=== PATIENT | male | born 1950 | race Caucasian/White ===

== ENCOUNTER 2019-01-16 21:25 | Inpatient (IN) ==
[2019-01-16 23:06] LABS: BASO# 0.03 X1000 (0.0-0.2); BASO% 0.6 % (0.0-0.8); HEMATOCRIT 37.3 % (42.0-52.0); HEMOGLOBIN 12.9 g/dL (14.0-18.0); IMM GRAN# 0.03 X1000 (0.0-0.04); IMM GRAN% 0.6 % (0.0-0.5); LYMPH# 0.83 X1000 (1.2-3.4); LYMPH% 15.5 % (20.5-51.1); MCHC 34.6 g/dL (33-37); MCV 89.7 FL (81-99); MONO# 0.69 X1000 (0.11-0.59); MONO% 12.9 % (1.7-9.3); NEUT# 3.77 X1000 (1.4-6.5); NEUT% 70.4 % (42.2-75.2); PLT 197 X1000 (130-400); RBC 4.16 XMIL (4.7-6.1); RDW 12.5 % (11.5-14.5); WBC 5.35 X1000 (4.8-10.8)
[2019-01-16] MEDS ORDERED: MOTRIN PO ONE (23:10)
[2019-01-16 23:30] LABS: INR 0.87; PROTIME 12.3 Seconds (11.0-16.0); PTT 25.8 Seconds (22.3-41.8)
[2019-01-16 23:31] LABS: ALBUMIN 4.4 g/dL (3.5-5.0); CALCIUM 8.8 mg/dL (8.8-10.2); CREATININE 1.8 mg/dL (0.7-1.2); POTASSIUM 4.5 mmol/L (3.5-5.1); TOTAL BILIRUBIN 0.2 mg/dL (0.20-1.00); TOTAL PROTEIN 7.6 g/dL (6.3-8.3)
[2019-01-16 23:33] LABS: BILIRUBIN URINE NEGATIVE (NEGATIVE); BLOOD URINE 1+ (NEGATIVE); CLARITY CLEAR (CLEAR); COLOR YELLOW; KETONE URINE NEGATIVE (NEGATIVE); LEUKOCYTES URINE NEGATIVE (NEGATIVE); NITRITE URINE NEGATIVE (NEGATIVE); PROTEIN URINE 1+(30 mg/dL) mg/dL (NEGATIVE); URINE SOURCE CLEAN CATCH; UROBILINOGEN URINE NORMAL
[2019-01-16 23:34] LABS: URINE BACTERIA NEGATIVE /HFP; URINE EPITHELIAL CELLS <10 /HPF (<10); URINE WBC <10 /HPF (<10)
[2019-01-17 00:46] LABS: INFLUENZA A NEGATIVE (NEGATIVE); INFLUENZA B NEGATIVE (NEGATIVE)
[2019-01-17] MEDS ORDERED: NS 1,000 ML IV ONE (01:07)
[2019-01-17] MEDS ORDERED: ROCEPHIN 1 GM in NS 50 ML IV ONE (01:13)
--- NOTE | 2019-01-17 02:09 | PROVIDER DOCUMENTATION ---
This chart was entered by Nicolasa Franks Scribe, acting as scribe for Bi Eden MD. HPI-General Adult - General Chief Complaint: Stroke-Like Symptoms Stated Complaint: BP PROBLEMS Time Seen by Provider: 01/16/19 22:00 Source: patient, family Allergies/Adverse Reactions: Patient Allergies Allergy/AdvReac Type Severity Reaction Status Date / Time celecoxib [From Celebrex] Allergy SWELLING Verified 02/11/18 16:47 Sulfa (Sulfonamide Allergy SWELLING Verified 02/11/18 16:47 Antibiotics) - History of Present Illness -Gen Adult Nature of Presenting Problems: 69 y/o male presents to ED with trouble walking, weakness, lethargy, diarrhea, HTN, and hyperglycemia onset this afternoon. Pt reports hx CVA. Pt is alert and oriented. Location of Pain/Injury: reports: generalized Pain Radiation: reports: no radiation Quality of Pain: reports: none Severity: reports: mild Onset/Duration: reports: this afternoon Timing: reports: still present Context/Activities at Onset: reports: none Modifying Factors: improves with: nothing Associated Symptoms: reports: diarrhea, weakness, trouble walking, other (HTN; hyperglycemia; lethargic) Similar Symptoms Previously?: No Recently seen or treated by another doctor?: No Review of Systems - Adult - REVIEW OF SYSTEMS - ADULT Constitutional: reports: other (HTN; lethargic). denies: chills, fever Eyes: reports: no symptoms reported Ears, Nose, Mouth & Throat: reports: no symptoms reported Cardiovascular: reports: other (HTN). denies: chest pain, palpitations Respiratory: denies: cough, shortness of breath Gastrointestinal: reports: diarrhea. denies: abdominal pain, nausea, vomiting Genitourinary: reports: no symptoms reported Musculoskeletal: denies: back pain, joint pain Integumentary: reports: no symptoms reported Neurological: reports: other (weakness; trouble walking). denies: dizziness/vertigo, seizure Psychiatric: reports: no symptoms reported Endocrine: reports: other (hyperglycemia). denies: goiter Hematologic/Lymphatic: reports: no symptoms reported Allergic/Immunologic: reports: no symptoms reported All Other Systems: Reviewed and Negative Past History - Adult - PAST MEDICAL HISTORY-ADULT Review of Records: reports: Old Records Reviewed, Nursing Assessment Review, Medications Reviewed Major Childhood Illnesses: reports: denies history Cardiovascular: reports: denies history Respiratory: reports: denies history Gastrointestinal: reports: denies history Genitourinary: reports: denies history Musculoskeletal: reports: denies history Neurological: reports: CVA Endocrine/Immune: reports: Diabetes Other Conditions: reports: denies history, cataract/glaucoma - PRIOR SURGERIES/PROCEDURES Surgical/Procedure History: reports: reviewed, not pertinent, other (cataract removal; moles; arteriogram) - IMMUNIZATION STATUS Childhood Immunizations: See Nurse Assessment Flu Vaccine: See Nurse Assessment - FAMILY HISTORY Family History: reviewed, not pertinent - SOCIAL HISTORY Smoking: non-smoker Substance Use: none/never Alcohol Use Frequency: never Living Situation: family Physical Exam-General - PHYSICAL EXAM-ADULT Initial Vital Signs Reviewed: Yes - CONSTITUTIONAL General Appearance: appears well, alert, no apparent distress - EYES Eyes: PERRL/EOMI, pink conjunctivae - HEAD, EARS, NOSE, MOUTH & THROAT HENMT: normocephalic/atraumatic, moist mucous membranes, normal ENT inspection - NECK Neck: non-tender, full range of motion - RESPIRATORY Respiratory: chest non-tender, lungs clear, normal breath sounds - CARDIOVASCULAR Cardiovascular: tachycardia - GASTROINTESTINAL (ABDOMEN) Abdominal Exam: normal bowel sounds, non tender, soft - MUSCULOSKELETAL Back Exam: normal inspection, no CVA tenderness Extremity: normal range of motion, non-tender, normal gait - SKIN Integumentary: normal color, warm/dry - NEUROLOGIC Neurologic: grossly normal - PSYCHIATRIC Psych/Mental Status: normal mood/affect, normal thought content, normal thought process Progress - PLAN OF CARE/RESULTS Progress/Plan/Lab Results: Vital Signs - 8 hr 01/16/19 21:31 01/16/19 22:27 Temperature 101.1 F H 101.8 F H Pulse Rate 125 H Respiratory Rate 20 Blood Pressure 180/89 O2 Sat by Pulse Oximetry 95 Laboratory Results - last 24 hr 01/16/19 22:27 POC Glucose 249 H Orders Category Date Time Status Cardiac Monitoring DIRECTED Care 01/16/19 22:46 Active IV Insertion ORDERED Care 01/16/19 22:46 Active Notify MD of + Sepsis Screen NOW Care 01/16/19 22:30 Active CHEST-1 VIEW [RAD] Stat Exams 01/16/19 22:46 Ordered BLOOD CULTURE [BLDCUL] Stat Lab 01/16/19 22:46 Uncollected CBC WITH DIFF [HEME] Stat Lab 01/16/19 22:46 Uncollected CK PROFILE [SP CHEM] Stat Lab 01/16/19 22:46 Uncollected COMPREHENSIVE METABOLIC PANEL [CHEM] Stat Lab 01/16/19 22:46 Uncollected LACTATE, PLASMA [CHEM] Q3 Lab 01/16/19 23:00 Uncollected LACTATE, PLASMA [CHEM] Q3 Lab 01/17/19 02:00 Uncollected LACTATE, PLASMA [CHEM] Q3 Lab 01/17/19 05:00 Uncollected PROTIME WITH INR [COAG] Stat Lab 01/16/19 22:46 Uncollected PSA DIAGNOSTIC Stat Lab 01/16/19 22:53 Ordered PTT [COAG] Stat Lab 01/16/19 22:46 Uncollected TROPONIN T Stat Lab 01/16/19 22:[address] W/POSS RFLX CULT [URINALYSIS] Stat Lab 01/16/19 22:46 Uncollected Oxygen Device Stat Oth 01/16/19 22:46 Active Laboratory Tests 01/16/19 01/16/19 01/16/19 22:27 22:55 22:55 WBC 5.35 RBC 4.16 L Hgb 12.9 L Hct 37.3 L MCV 89.7 MCH 31.0 MCHC 34.6 RDW Std Deviation 12.5 Plt Count 197 MPV 11.0 H Immature Gran % (Auto) 0.6 H Neut % (Auto) 70.4 Lymph % (Auto) 15.5 L [place] % (Auto) 12.9 H Eos % (Auto) 0.0 Baso % (Auto) 0.6 Immature Gran # (Auto) 0.03 Neut # (Auto) 3.77 Lymph # (Auto) 0.83 L [place] # (Auto) 0.69 H Eos # (Auto) 0.00 Baso # (Auto) 0.03 PT INR PTT (Actin FS) Sodium 132 L Potassium 4.5 Chloride 95 L Carbon Dioxide 22 L Anion Gap 15 BUN 22 Creatinine 1.8 H Estimated GFR/1.73 m2 37 BUN/Creatinine Ratio 12 Glucose 221 H POC Glucose 249 H Calculated Osmolality 275 Calcium 8.8 Total Bilirubin 0.20 AST 24 ALT 17 Alkaline Phosphatase 69 Creatine Kinase 119 Troponin T Total Protein 7.6 Albumin 4.4 Globulin 3.0 Albumin/Globulin Ratio 1.0 Plasma Lactate PSA Diagnostic Urine Source Urine Color Urine Clarity Urine pH Ur Specific Avis Urine Protein Urine Ketones Urine Blood Urine Nitrite Urine Bilirubin Urine Urobilinogen Urine Microscopic RBC Urine WBC Urine Microscopic WBC Ur Epithelial Cells Urine Bacteria Urine Glucose 01/16/19 01/16/19 01/16/19 22:55 22:55 22:55 WBC RBC Hgb Hct MCV MCH MCHC RDW Std Deviation Plt Count MPV Immature Gran % (Auto) Neut % (Auto) Lymph % (Auto) [place] % (Auto) Eos % (Auto) Baso % (Auto) Immature Gran # (Auto) Neut # (Auto) Lymph # (Auto) [place] # (Auto) Eos # (Auto) Baso # (Auto) PT 12.3 INR 0.87 PTT (Actin FS) 25.8 Sodium Potassium Chloride Carbon Dioxide Anion Gap BUN Creatinine Estimated GFR/1.73 m2 BUN/Creatinine Ratio Glucose POC Glucose Calculated Osmolality Calcium Total Bilirubin AST ALT Alkaline Phosphatase Creatine Kinase Troponin T < 0.010 Total Protein Albumin Globulin Albumin/Globulin Ratio Plasma Lactate 1.6 PSA Diagnostic Urine Source Urine Color Urine Clarity Urine pH Ur Specific Avis Urine Protein Urine Ketones Urine Blood Urine Nitrite Urine Bilirubin Urine Urobilinogen Urine Microscopic RBC Urine WBC Urine Microscopic WBC Ur Epithelial Cells Urine Bacteria Urine Glucose 01/16/19 01/16/19 22:55 23:05 WBC RBC Hgb Hct MCV MCH MCHC RDW Std Deviation Plt Count MPV Immature Gran % (Auto) Neut % (Auto) Lymph % (Auto) [place] % (Auto) Eos % (Auto) Baso % (Auto) Immature Gran # (Auto) Neut # (Auto) Lymph # (Auto) [place] # (Auto) Eos # (Auto) Baso # (Auto) PT INR PTT (Actin FS) Sodium Potassium Chloride Carbon Dioxide Anion Gap BUN Creatinine Estimated GFR/1.73 m2 BUN/Creatinine Ratio Glucose POC Glucose Calculated Osmolality Calcium Total Bilirubin AST ALT Alkaline Phosphatase Creatine Kinase Troponin T Total Protein Albumin Globulin Albumin/Globulin Ratio Plasma Lactate PSA Diagnostic 0.18 Urine Source CLEAN CATCH Urine Color YELLOW Urine Clarity CLEAR Urine pH 5.0 Ur Specific Avis 1.010 Urine Protein 1+(30 mg/dL) A Urine Ketones NEGATIVE Urine Blood 1+ A Urine Nitrite NEGATIVE Urine Bilirubin NEGATIVE Urine Urobilinogen NORMAL Urine Microscopic RBC 10-20 A Urine WBC NEGATIVE Urine Microscopic WBC <10 Ur Epithelial Cells <10 Urine Bacteria NEGATIVE Urine Glucose 2+(250 mg/dL) A Laboratory Tests 01/16/19 01/16/19 01/16/19 22:27 22:55 22:55 WBC 5.35 RBC 4.16 L Hgb 12.9 L Hct 37.3 L MCV 89.7 MCH 31.0 MCHC 34.6 RDW Std Deviation 12.5 Plt Count 197 MPV 11.0 H Immature Gran % (Auto) 0.6 H Neut % (Auto) 70.4 Lymph % (Auto) 15.5 L [place] % (Auto) 12.9 H Eos % (Auto) 0.0 Baso % (Auto) 0.6 Immature Gran # (Auto) 0.03 Neut # (Auto) 3.77 Lymph # (Auto) 0.83 L [place] # (Auto) 0.69 H Eos # (Auto) 0.00 Baso # (Auto) 0.03 PT INR PTT (Actin FS) Sodium 132 L Potassium 4.5 Chloride 95 L Carbon Dioxide 22 L Anion Gap 15 BUN 22 Creatinine 1.8 H Estimated GFR/1.73 m2 37 BUN/Creatinine Ratio 12 Glucose 221 H POC Glucose 249 H Calculated Osmolality 275 Calcium 8.8 Total Bilirubin 0.20 AST 24 ALT 17 Alkaline Phosphatase 69 Creatine Kinase 119 Troponin T Total Protein 7.6 Albumin 4.4 Globulin 3.0 Albumin/Globulin Ratio 1.0 Plasma Lactate PSA Diagnostic Urine Source Urine Color Urine Clarity Urine pH Ur Specific Avis Urine Protein Urine Ketones Urine Blood Urine Nitrite Urine Bilirubin Urine Urobilinogen Urine Microscopic RBC Urine WBC Urine Microscopic WBC Ur Epithelial Cells Urine Bacteria Urine Glucose Influenza A (Rapid) Influenza B (Rapid) 01/16/19 01/16/19 01/16/19 22:55 22:55 22:55 WBC RBC Hgb Hct MCV MCH MCHC RDW Std Deviation Plt Count MPV Immature Gran % (Auto) Neut % (Auto) Lymph % (Auto) [place] % (Auto) Eos % (Auto) Baso % (Auto) Immature Gran # (Auto) Neut # (Auto) Lymph # (Auto) [place] # (Auto) Eos # (Auto) Baso # (Auto) PT 12.3 INR 0.87 PTT (Actin FS) 25.8 Sodium Potassium Chloride Carbon Dioxide Anion Gap BUN Creatinine Estimated GFR/1.73 m2 BUN/Creatinine Ratio Glucose POC Glucose Calculated Osmolality Calcium Total Bilirubin AST ALT Alkaline Phosphatase Creatine Kinase Troponin T < 0.010 Total Protein Albumin Globulin Albumin/Globulin Ratio Plasma Lactate 1.6 PSA Diagnostic Urine Source Urine Color Urine Clarity Urine pH Ur Specific Avis Urine Protein Urine Ketones Urine Blood Urine Nitrite Urine Bilirubin Urine Urobilinogen Urine Microscopic RBC Urine WBC Urine Microscopic WBC Ur Epithelial Cells Urine Bacteria Urine Glucose Influenza A (Rapid) Influenza B (Rapid) 01/16/19 01/16/19 01/17/19 22:55 23:05 00:21 WBC RBC Hgb Hct MCV MCH MCHC RDW Std Deviation Plt Count MPV Immature Gran % (Auto) Neut % (Auto) Lymph % (Auto) [place] % (Auto) Eos % (Auto) Baso % (Auto) Immature Gran # (Auto) Neut # (Auto) Lymph # (Auto) [place] # (Auto) Eos # (Auto) Baso # (Auto) PT INR PTT (Actin FS) Sodium Potassium Chloride Carbon Dioxide Anion Gap BUN Creatinine Estimated GFR/1.73 m2 BUN/Creatinine Ratio Glucose POC Glucose Calculated Osmolality Calcium Total Bilirubin AST ALT Alkaline Phosphatase Creatine Kinase Troponin T Total Protein Albumin Globulin Albumin/Globulin Ratio Plasma Lactate PSA Diagnostic 0.18 Urine Source CLEAN CATCH Urine Color YELLOW Urine Clarity CLEAR Urine pH 5.0 Ur Specific Avis 1.010 Urine Protein 1+(30 mg/dL) A Urine Ketones NEGATIVE Urine Blood 1+ A Urine Nitrite NEGATIVE Urine Bilirubin NEGATIVE Urine Urobilinogen NORMAL Urine Microscopic RBC 10-20 A Urine WBC NEGATIVE Urine Microscopic WBC <10 Ur Epithelial Cells <10 Urine Bacteria NEGATIVE Urine Glucose 2+(250 mg/dL) A Influenza A (Rapid) NEGATIVE Influenza B (Rapid) NEGATIVE Result Diagrams: 01/16/19 22:55 01/16/19 22:55 - EKG 1 Time of EKG reading by physician:: 22:36 EKG Read and Signed by:: Bi Eden EKG Interpretation (*Must complete 3 of following elements*): Normal (Borderline) Rate: 122 Rhythm: Sinus tach [place]: normal QRS: RBB (incomplete) HI Interval: normal ST Wave: normal - XRAY 1 XRAY Study: Chest Impression: Abnormal (Possible pneumonia? may be from position. repeat cxr ordered. read by Dr. Eden) 2 XRAY Study: Chest Impression: Normal (read by Dr. Eden) - CONSULTS/PCP/HOSPITALIST Notification #1 *Consult/PCP/Hospitalist*: Dr. Puckett Time Discussed: 00:00 Reason/Comments: Fever, weakness, fall Consult Disposition: Admit Departure - Departure Date of Disposition Decision: 01/17/19 Time of Disposition Decision: 01:06 DIAGNOSIS: History of CVA (cerebrovascular accident), Febrile illness, Weakness Diabetes Qualifiers: Diabetes mellitus type: type 2 Diabetes mellitus alf insulin use: unspecified alf insulin use status Diabetes mellitus complication status: with unspecified complications Qualified Code(s): E11.8 - Type 2 diabetes mellitus with unspecified complications Diarrhea Qualifiers: Diarrhea type: unspecified type Qualified Code(s): R19.7 - Diarrhea, unspecified Disposition: ADMITTED INPATIENT 09 Certified Medical Emergency: Emergent Condition: Stable Additional Freetext Instructions: ED Follow Up Instructions: You have been treated by a care provider in the Emergency Department. These ins tructions are being provided to you so you can have an understanding of how to care for yourself upon discharge. Upon discharge from the Emergency Department, you are responsible for making arrangements for follow-up care by a physician of your choice. Take all prescribed medications as directed. Return to the Emergency Department immediately for any new or worsening symptoms. You may call the Physician Referral phone number at [phone] to obtain a list of Physicians who are taking new patients. Referrals and Follow-Ups: Deshawn Guido MD [Primary Care Provider] - - Critical Care Note This patient required my direct & personal management of CC.: No Attestation - Physician/ LINDA Attestation Patient care was provided by Advanced Practice Provider:: No The physician spent face to face time with patient:: Yes Advanced Practice Provider documentation review:: Supervising physician onsite and consulted in the evaluation and care of this patient. The physician did have a face to face encounter with the patient. This chart was documented by the indicated scribe, (Nicolasa Franks Scribe) and accurately reflects the services I performed and decisions made by me, Bi Eden MD, as attested by the provider's signature.
--- NOTE | 2019-01-17 05:27 | Diag Imaging Result Doc PS360 ---
EXAM: CHEST-1 VIEW HISTORY: sepsis trent TECHNIQUE: Chest single view COMPARISON: 02/11/2018 FINDINGS: Poor inspiratory effort. No cardiomegaly. No pleural effusions identified. Increased markings in the lung bases believed to be atelectasis. No consolidation. IMPRESSION: Poor inspiratory effort with basilar atelectasis Electronically signed by Bryce Gonzalez 01/17/2019 5:24 AM
--- NOTE | 2019-01-17 07:48 | Diag Imaging Result Doc PS360 ---
EXAM: CHEST-PORTABLE HISTORY: fever TECHNIQUE: Portable chest single view COMPARISON: 01/16/2019 FINDINGS: The lungs are well expanded. The heart is not enlarged. The vessels are not distended. There are no infiltrates. No effusion identified. Granuloma in the mid right lung. IMPRESSION: No pneumonia. Electronically signed by Bryce Gonzalez 01/17/2019 7:46 AM
[2019-01-17] MEDS ORDERED: TYLENOL PO PRN (08:43)
[2019-01-17] MEDS ORDERED: TOPROL XL PO SCH ×2 (09:00)
[2019-01-17] MEDS ORDERED: PRINIVIL PO SCH (09:00)
[2019-01-17 10:03] LABS: BASO# 0.02 X1000 (0.0-0.2); BASO% 0.5 % (0.0-0.8); EOS# 0.02 X1000 (0.0-0.7); EOS% 0.5 % (0.0-10.0); HEMATOCRIT 39.2 % (42.0-52.0); HEMOGLOBIN 13.4 g/dL (14.0-18.0); IMM GRAN# 0.02 X1000 (0.0-0.04); IMM GRAN% 0.5 % (0.0-0.5); LYMPH# 0.71 X1000 (1.2-3.4); LYMPH% 16.4 % (20.5-51.1); MCH 30.6 PG (27-31); MCHC 34.2 g/dL (33-37); MCV 89.5 FL (81-99); MONO# 0.51 X1000 (0.11-0.59); MONO% 11.8 % (1.7-9.3); MPV 11.1 FL (7.4-10.4); NEUT# 3.04 X1000 (1.4-6.5); NEUT% 70.3 % (42.2-75.2); PLT 194 X1000 (130-400); RBC 4.38 XMIL (4.7-6.1); RDW 12.7 % (11.5-14.5); WBC 4.32 X1000 (4.8-10.8)
[2019-01-17 10:17] LABS: INR 0.94; PROTIME 13.1 Seconds (11.0-16.0); PTT 24.6 Seconds (22.3-41.8)
--- NOTE | 2019-01-17 10:17 | EKG Report ---
Test Performed on : 01/16/2019 10:36:19 PM Test Reason : CP Blood Pressure : / mmHG Vent. Rate : 122 BPM Atrial Rate : 122 BPM P-R Int : 176 ms QRS Dur : 092 ms QT Int : 300 ms P-R-T Axes : 025 021 033 degrees QTc Int : 427 ms Sinus tachycardia. Incomplete right bundle branch block Borderline ECG When compared with ECG of 11-FEB-2018 16:45, Vent. rate has increased BY 41 BPM Incomplete right bundle branch block is now present Confirmed by Bi Eden MD ([id number]) on 01/24/2019 10:32:40 AM
[2019-01-17 10:22] LABS: HEMOGLOBIN A1C 9.7 % (4.8-6.0)
[2019-01-17 10:26] LABS: CALCIUM 8.9 mg/dL (8.8-10.2); CREATININE 1.7 mg/dL (0.7-1.2); POTASSIUM 4.3 mmol/L (3.5-5.1); TOTAL BILIRUBIN 0.2 mg/dL (0.20-1.00); TOTAL PROTEIN 7.6 g/dL (6.3-8.3)
[2019-01-17 10:49] LABS: FREE T4 1.23 ng/dL (0.93-1.70)
[2019-01-17 10:58] LABS: TSH 1.77 uIUmL (0.27-4.20)
[2019-01-17] MEDS: ICAR-C PLUS PO SCH (11:18)
[2019-01-17] MEDS: MAG-OX PO SCH (11:19)
[2019-01-17] MEDS: VITAMIN B-12 PO SCH (11:19)
[2019-01-17] MEDS: ASPIRIN PO SCH (11:19)
[2019-01-17] MEDS: THERA M PLUS PO SCH (11:20)
[2019-01-17] MEDS: GLUCOPHAGE PO SCH ×2 (11:24→17:34)
[2019-01-17] MEDS: AMARYL PO SCH ×2 (11:25→17:34)
[2019-01-17] MEDS: PLAVIX PO SCH (11:25)
--- NOTE | 2019-01-17 11:28 | Diag Imaging Result Doc PS360 ---
CT HEAD W/O CONTRAST - 01/17/2019 INDICATION: cva symptoms COMPARISON: 05/16/2014 FINDINGS: There is mild to moderate periventricular white matter chronic microvascular disease that has progressed since the prior exam. No intracranial mass or hemorrhage. The skull is intact. The sinuses, mastoids, and middle ears are clear. IMPRESSION: Progression in cerebral white matter hypodensities compatible with chronic microvascular disease. This exam was performed using automated exposure control, adjustment of mA or kV according to patient size, and/or use of iterative reconstruction technique Electronically signed by Leon Shin 01/17/2019 11:26 AM
[2019-01-17] MEDS: HUMULIN R (PARKWAY) SUBQ SCH ×3 (12:39→21:27)
[2019-01-17] MEDS ORDERED: APRESOLINE IV PRN (13:13)
[2019-01-17] MEDS: ROCEPHIN 1 GM in NS 50 ML IV SCH (15:38)
--- NOTE | 2019-01-17 15:56 | HISTORY AND PHYSICAL ---
DATE OF PRESENTATION TO EMERGENCY ROOM: 01/16/2019 PRIMARY CARE PROVIDER: Dr. Hdz. STOCK HOUSE WORKER: Dr. Juarez. VASCULAR SURGEON: Dr. Ruiz. CHIEF COMPLAINT: Diarrhea, weakness, lethargy, high blood pressure and high blood sugar. HISTORY OF PRESENT ILLNESS: Mr. Uzair Boland is a 69-year-old male with a medical history of 2 strokes with the last one being in 2012 and at that time had caused right-sided weakness but now only chronically has right lower extremity numbness. According to him and his , they went to [facility] yesterday evening. His stomach felt upset, and he ended up having one large spell of diarrhea with weakness. So, he went ahead and went home early from [facility]. His took his blood pressure and heart rate, and his heart rate was running in the 1-teens, and his blood pressure was running 170s-180s/100, so he came to the emergency department. His face was red. When they checked his temperature, he had developed a fever of 101.8. He has not had any more spells of diarrhea, but he still continues to have some spells of fever. His urine looks clear. His chest x-ray was without any pneumonia. He had nasal swab for flu which ruled out the flu. He ruled out for stroke with a head CT, and there was nothing acute. He had no more spells of diarrhea. He really would like to go home, but he is continuing to have fever. So, we will have to see for continued workup and maybe will have to start him on some antibiotic despite not knowing where the source is. PAST MEDICAL HISTORY: 1. CVA x 2 with last one being in 2012. At that time he had some right-sided weakness, but that has resolved and now only has numbness. He is on Plavix. 2. Diabetes mellitus Type 2 uncontrolled. 3. Hypertension. 4. CKD Stage 3. 5. Hyperlipidemia. 6. Hypertriglyceridemia. 7. Skin disorder, eczema and mites causing dermatitis. SURGICAL HISTORY: 1. Bilateral cataracts. 2. EGD and colonoscopy in 2013. 3. Moles removed. SOCIAL HISTORY: Denies tobacco, alcohol or illicit drug use. 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 He lives at home with his . FAMILY HISTORY: Mother's side of the family stroke and diabetes. Father myocardial infarction in his 60s with CABG and also had AAA. One brother had cardiomyopathy and was going to be having LVAD placed, congestive heart failure and diabetes. He had another brother that had testicular cancer and congestive heart failure. ALLERGIES: Celebrex and Sulfa HOME MEDICATIONS: 1. Pravastatin 20 mg p.o. nightly. 2. Aspirin/calcium carbonate/magnesium combination 325 mg p.o. daily. 3. Plavix 75 mg p.o. daily. 4. Iron supplement once daily. 5. Doxycycline hyclate 50 mg p.o. daily. 6. Glimepiride 2 mg p.o. twice daily. 7. Iron, Vitamin B12, folic acid with Vitamin C once daily. 8. Lisinopril 20 mg p.o. twice daily. 9. Magnesium oxide 400 mg p.o. daily. 10.Metformin 1000 mg p.o. twice daily. 11.Metoprolol 25 mg p.o. twice daily. 12.Trulicity 1.5 mg subcu q Monday. 13.Vitamin B12 1000 mcg p.o. daily. REVIEW OF SYSTEMS: A 14-point review of systems are complete and all are negative except for those mentioned above in HPI. PHYSICAL EXAMINATION: VITAL SIGNS: 101.8; heart rate 117; respiratory rate 18; blood pressure 185/106; O2 saturation 100% on room air. GENERAL: Mr. Uzair Boland is a 69-year-old male. He is in no acute distress. He is able to answers questions appropriately. HEENT: Atraumatic, normocephalic. Pupils equal, round, and reactive to light. Extraocular movements intact. Mucous membranes are dry. NECK: Trachea midline. CARDIOVASCULAR: S1, S2. Tachycardic rate and rhythm. No rubs, gallops, or murmurs. No lower extremity edema, +2 dorsalis and radial pulses. Negative JVD or carotid bruits. PULMONARY: Clear to auscultate bilateral breath sounds. No accessory muscle use or work of breathing noted. GASTROINTESTINAL: Soft, nontender, nondistended, positive bowel sounds x4. EXTREMITIES: Moves all extremities equally with full range of motion. NEUROLOGIC: A and O x3, follows commands. Sensory is intact except for right lower extremity chronic numbness. SKIN: Warm, dry, intact. LABORATORY DATA: White blood cells 4000, hemoglobin 13, hematocrit 39, platelets 194,000. INR 0.94, PTT 24.6, sodium 139, potassium 4.3, BUN 19, creatinine 1.7, glucose 193, calcium 8.9, A1C 9.7, bilirubin 0.2, AST 20, ALT 18, CK 119, troponin less than 0.01, albumin 4.0, triglycerides 293, total cholesterol 155, lactate 1.6, PSA 0.18, TSH 1.73, free T4 1.23. Urinalysis 1+ protein, 1+ blood, 10-20 red blood cells, 2+ glucose. Negative flu. IMAGING: Chest x-ray poor inspiratory effort with basilar atelectasis. Repeat chest x-ray no pneumonia. Head CT progression and cerebral white matter hypodensities compatible with chronic microvascular disease. EKG sinus tachycardia, incomplete right bundle branch block, rate 122, QTc 427. ASSESSMENT AND PLAN: 1. Fever of unknown origin with one spell of diarrhea could possibly be viral gastroenteritis. There is no leukocytosis with it. Cultures have all been obtained in the ER, and he was given Rocephin. So, we will continue with Rocephin. 2. History of CVA. Head CT negative for any acute findings. He is pretty strong in all extremities and does not seem to have any signs or symptoms of stroke or TIA. We will continue with Plavix and statin and aspirin. 3. Hyperlipidemia with hypertriglyceridemia. He is on pravastatin, but we will also add fenofibrate due to the elevated triglycerides. 4. CKD Stage 3 currently at baseline. We will monitor daily. 5. History of eczema and dermatitis. He is on doxycycline daily for that. We will hold that for now. 6. Diabetes mellitus Type 2 uncontrolled with hemoglobin A1C of 9.7. He will be on a diabetic diet, sliding scale insulin and patterned blood glucoses. 7. DVT prophylaxis. He is currently on Plavix. Will do SCDs. Dictated by ROSA Chatman for David Garcia MD Addendum: Patient seen and examined by myself. Agree with ROSA note. It reflects my assessment and plan. Patient is being admitted to hospital for what it looks like is a gastroenteritis. Considering his fever he received Rocephin in the ER. Will continue with those if fever persist and also I was notified of some pauses in the telemetry so will consult Cardiology and will go from there. cc: ROSA Chatman MD MTDD
[2019-01-17] MEDS ORDERED: LOPRESSOR 10 MG in NS 50 ML IV ONE (16:00)
--- NOTE | 2019-01-17 16:21 | HISTORY AND PHYSICAL ---
ADDENDUM ASSESSMENT AND PLAN: Apparently the patient was having four to five second pauses earlier this morning, so the plan is to have Cardiology come to see the patient and Dr. Wolfe will be seeing the patient. Currently, vital signs are stable. He is actually tachycardic with elevated blood pressure. Dictated by ROSA Chatman for David Garcia MD cc: ROSA Chatman MD
--- NOTE | 2019-01-17 17:07 | CARDIOLOGY CONSULTATION ---
DATE: 01/17/2019 REASON FOR CONSULTATION: Cardiology was consulted for sinus pause noted in the telemetry of 3.5 seconds. The patient is admitted with fevers, had an episode of diarrhea. HISTORY OF PRESENT ILLNESS: A 69-year-old, gentleman, who has history of hypertension, CVA, peripheral vascular disease. Was at [facility], had an episode of diarrhea subsequently. He left [facility] and came here. He felt unwell, but did not have any samantha syncopal episode. He was noted to have a fever today. His temperature was a 101.8. His blood culture, urine culture are pending. From a cardiac standpoint, no previous known cardiac history. He denies chest pain. There is no dizziness. There is no syncope. Next, he was noted to have a blood pressure of 185/106. Was started on metoprolol drip and at home he was taking beta blockers. He has not had any associated with the fever, no cough expectoration. There is no history of hemoptysis. There was no blood noted with his diarrhea. He denies any chest pains or palpitations. PAST MEDICAL HISTORY: 1. Hypertension. 2. Diabetes. 3. CVA. HOME MEDICATIONS: Plavix 75 mg a day, lisinopril 20 b.i.d., metformin 1000 mg b.i.d., metoprolol 25 mg p.o. b.i.d., enteric-coated aspirin, glyburide 2 mg p.o. b.i.d.. Mag oxide. Pravastatin 20. Trulicity. ALLERGIES: He is allergic to celecoxib and sulfonamides. SOCIAL HISTORY: Patient does not smoke. There is no history of alcohol abuse. REVIEW OF SYSTEM: Fourteen-point review of systems was done. GI System: As above. Cardiovascular: System as above Respiratory System: As above. Endocrine System: Stable. Central nervous system: No focal weakness to suggest a CVA or TIA. PHYSICAL EXAMINATION: General Examination: The patient's temperature was 101.8, heart rate 110. Blood pressure 185/106. First and second heart sounds were heard. There was no S3 or gallop. Respiratory: Normal air entry. There is no crepitations or rhonchi. Abdomen: Soft, obese, nontender. There was no guarding or rigidity. Bowel sounds were heard. Central nervous system: Alert and was moving all 4 extremities. Extremities: Examination of extremities revealed no pedal edema. HEENT: Atraumatic, normocephalic. Pupils were equal and reacting to light. LABORATORY EXAMINATION: Hemoglobin 13.4, hematocrit 39.2, platelet count of 194. WBC 4.32, hemoglobin 13.4, hematocrit 39.2, platelet count of 194. Chemistry: Sodium 139, potassium 4.3, BUN 19, creatinine 1.7 troponin was negative. Electrocardiogram revealed a sinus tachycardia. Telemetry revealed episodes of 2 second, and 3.5 second pause. He was asymptomatic. Otherwise, he is in sinus tachycardia. ASSESSMENT: Mr. Uzair Boland is a 69-year-old, gentleman, who is admitted with: 1. Abdominal discomfort, diarrhea. Has had fevers. 2. Has history of hypertension. 3. Diabetes. 4. Transient ischemic attack in the past. 5. He does not complain of having any palpitations. Denies chest pain. Denies syncopal episode. RECOMMENDATIONS: 1. He is on beta-blockers given his bradyarrhythmia noted on the telemetry. As mentioned above, we will discontinue the beta blockers. In addition, discontinue the IV Lopressor, which he is getting for elevated blood pressure. 2. Tachycardia, driven by his fevers. His blood cultures and urine cultures pending. 3. For hypertension, he is on lisinopril 20 mg p.o. b.i.d., we will give him hydralazine. 10 mg IV p.r.n. and 50 mg p.o. q.8. 4. He has had peripheral vascular disease, minimal carotid followed by Dr. Ruiz in [place] and has had vascular Dopplers done which, per patient's family, were unremarkable. So far have been stable. 5. For diabetes. Will continue with current medications. 6. He has renal insufficiency with a creatinine of 1.8 when he came in. It is 1.7 now. He had received IV fluids. This could be multifactorial related to diabetes and medications as well. Currently, I have not made any changes. His thyroid profile, TSH was normal. Thank you for the consult. We will follow hospital course. cc: MD CRISSY Douglas
[2019-01-17] MEDS: TYLENOL PO PRN (20:54)
[2019-01-17] MEDS: PRINIVIL PO SCH (20:55)
[2019-01-17] MEDS: TRICOR PO SCH (20:55)
[2019-01-17] MEDS: APRESOLINE PO SCH (20:55)
[2019-01-17] MEDS: PRAVACHOL PO SCH (20:55)
[2019-01-17] MEDS ORDERED: PRAVACHOL PO SCH (21:00)
--- NOTE | 2019-01-17 22:19 | Diag Imaging Result Doc PS360 ---
CT THORAX/ABD/PELVIS W/O CON - 01/17/2019 INDICATION: persistent fever, diarrhea COMPARISON: None FINDINGS: CHEST: There is a pulmonary nodular density in the lingula that is poorly defined. This measures 2.5 cm. There are calcified granulomas in the right middle lobe. No other infiltrates. Heart size is top normal. There is a prominent epicardial fat pad at the anterior left lung base. 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 Abdomen pelvis: There is a right renal cyst at the upper pole. No radiodense renal stones. No hydronephrosis or hydroureter. Other abdominal organs are normal. No bowel obstruction or inflammation. Urinary bladder, prostate, and rectum are normal. Bones are intact. IMPRESSION: 1. Large indistinct pulmonary nodule in the lingula. This may represent round pneumonia or neoplasm. 2. No acute process in the abdomen. This exam was performed using automated exposure control, adjustment of mA or kV according to patient size, and/or use of iterative reconstruction technique Electronically signed by Leon Shin 01/17/2019 10:17 PM
[2019-01-18] MEDS: ROCEPHIN 1 GM in NS 50 ML IV SCH (01:07)
[2019-01-18] MEDS: TYLENOL PO PRN ×2 (01:08→15:49)
[2019-01-18] MEDS: HUMULIN R (PARKWAY) SUBQ SCH ×4 (06:24→22:43)
[2019-01-18] MEDS: APRESOLINE PO SCH ×3 (06:24→20:01)
[2019-01-18 07:08] LABS: BASO# 0.02 X1000 (0.0-0.2); BASO% 0.5 % (0.0-0.8); HEMATOCRIT 36.8 % (42.0-52.0); HEMOGLOBIN 12.5 g/dL (14.0-18.0); IMM GRAN# 0.02 X1000 (0.0-0.04); IMM GRAN% 0.5 % (0.0-0.5); LYMPH# 0.65 X1000 (1.2-3.4); LYMPH% 17.7 % (20.5-51.1); MCH 30.3 PG (27-31); MCV 89.1 FL (81-99); MONO# 0.47 X1000 (0.11-0.59); MONO% 12.8 % (1.7-9.3); MPV 11.5 FL (7.4-10.4); NEUT# 2.51 X1000 (1.4-6.5); NEUT% 68.5 % (42.2-75.2); PLT 170 X1000 (130-400); RBC 4.13 XMIL (4.7-6.1); RDW 12.5 % (11.5-14.5); WBC 3.67 X1000 (4.8-10.8)
[2019-01-18 07:11] LABS: INR 0.96; PROTIME 13.3 Seconds (11.0-16.0)
[2019-01-18 07:17] LABS: ALBUMIN 3.7 g/dL (3.5-5.0); CALCIUM 8.2 mg/dL (8.8-10.2); CREATININE 1.6 mg/dL (0.7-1.2); POTASSIUM 3.8 mmol/L (3.5-5.1); TOTAL BILIRUBIN 0.2 mg/dL (0.20-1.00); TOTAL PROTEIN 6.7 g/dL (6.3-8.3)
[2019-01-18] MEDS: PLAVIX PO SCH (08:13)
[2019-01-18] MEDS: ICAR-C PLUS PO SCH (08:13)
[2019-01-18] MEDS: PRINIVIL PO SCH ×2 (08:13→20:01)
[2019-01-18] MEDS: VITAMIN B-12 PO SCH (08:13)
[2019-01-18] MEDS: MAXIPIME 1 GM in NS 50 ML IV SCH ×2 (08:13→19:51)
[2019-01-18] MEDS: THERA M PLUS PO SCH (08:13)
[2019-01-18] MEDS: MAG-OX PO SCH (08:13)
[2019-01-18] MEDS: GLUCOPHAGE PO SCH ×2 (08:14→17:32)
[2019-01-18] MEDS: ASPIRIN PO SCH (08:14)
[2019-01-18] MEDS: ZYVOX 600 MG/D5W 600 MG/300 ML IVPB IV SCH ×2 (09:44→20:02)
[2019-01-18] MEDS: ZOFRAN IV PRN (11:01)
[2019-01-18 11:47] LABS: BASO# 0.01 X1000 (0.0-0.2); BASO% 0.2 % (0.0-0.8); HEMATOCRIT 35.8 % (42.0-52.0); HEMOGLOBIN 12.4 g/dL (14.0-18.0); IMM GRAN# 0.01 X1000 (0.0-0.04); IMM GRAN% 0.2 % (0.0-0.5); LYMPH# 0.59 X1000 (1.2-3.4); LYMPH% 13.8 % (20.5-51.1); MCH 30.8 PG (27-31); MCHC 34.6 g/dL (33-37); MCV 88.8 FL (81-99); MONO# 0.46 X1000 (0.11-0.59); MONO% 10.7 % (1.7-9.3); MPV 11.2 FL (7.4-10.4); NEUT# 3.21 X1000 (1.4-6.5); NEUT% 75.1 % (42.2-75.2); PLT 165 X1000 (130-400); RBC 4.03 XMIL (4.7-6.1); RDW 12.4 % (11.5-14.5); WBC 4.28 X1000 (4.8-10.8)
[2019-01-18 11:58] LABS: ALBUMIN 3.6 g/dL (3.5-5.0); CALCIUM 8.3 mg/dL (8.8-10.2); CREATININE 1.5 mg/dL (0.7-1.2); POTASSIUM 3.7 mmol/L (3.5-5.1); TOTAL BILIRUBIN 0.2 mg/dL (0.20-1.00); TOTAL PROTEIN 6.7 g/dL (6.3-8.3)
[2019-01-18 12:11] LABS: INR 0.94; PROTIME 13.1 Seconds (11.0-16.0)
--- NOTE | 2019-01-18 12:23 | PROGRESS NOTE ---
DATE: 01/18/2019 SUBJECTIVE: The patient was having fever last night with temperatures of 101 and 102.8. He reports no coughing and no more episodes of diarrhea. OBJECTIVE: Vital Signs: Temperature 98.0 degrees, heart rate 92, respiratory rate 18, blood pressure 154/80, O2 saturation 100% on room air. General: This is a 69-year-old male lying in bed in no acute distress. Cardiovascular: S1 and S2 heard. No murmurs, gallops, or rubs. Regular rate and rhythm. Respiratory: Clear bilaterally to auscultation. No work of breathing or using accessory muscles. Abdomen: Soft and nontender to palpation. Bowel sounds present. No organomegaly. Extremities: No clubbing, cyanosis or edema. Peripheral pulses present in both legs. Neurological: The patient has chronic numbness in the right lower extremity. The rest of the neurological exam is okay. Moves all 4 extremities. LABORATORY DATA: White cell count is 4.28, hemoglobin 12.4, hematocrit 35.8, platelets 165,000. BMP with sodium 134, creatinine 1.6, glucose 254. CT of the chest, abdomen and pelvis without contrast showed large indistinct pulmonary nodule in the lingula that may represent round pneumonia or neoplasm. No acute process in the abdomen. ASSESSMENT AND PLAN: 1. Left lingular pneumonia. That is the reason why this patient was having fever. We have drawn 2 times blood culture that of course are still pending. I have decided to switch antibiotics to Zyvox and cefepime. We will continue to monitor this patient closely. 2. Bradyarrhythmia. The patient has a pause in the telemetry strips that was evaluated by Dr. Wolfe. At this point the plan for this patient was to stop beta-blockers and continue with Apresoline for management of blood pressure. 3. Hyperlipidemia and hypertriglyceridemia. We will continue with pravastatin and we will add fenofibrate. 4. Chronic kidney disease stage 3. We will continue to monitor. 5. Diabetes mellitus type 2. Hemoglobin A1c is 9.7. We will continue with the sliding scale insulin and Accu-Chek before meals and also at bedtime. cc: David Garcia MD
[2019-01-18] MEDS: TRICOR PO SCH (20:01)
[2019-01-18] MEDS: PRAVACHOL PO SCH (20:01)
--- NOTE | 2019-01-18 21:57 | ECHO REPORT ---
ORDER DATE: 01/17/2019 MEASUREMENTS: 1. Septal thickness 1.4. 2. Left ventricular internal diameter diastole 4.1. 3. Posterior wall thickness 1.4. 4. Left ventricular internal diameter in systole 2.7. 5. Aortic root 3.5. 6. Left atrium 3.8. SUMMARY: 1. Fair quality acoustic windows. 2. Very mild sclerosis of trileaflet aortic valve demonstrated with adequate aortic valve opening evident. Peak gradient across the aortic valve is 11 mmHg. Mitral annular calcification is demonstrated. There is trace mitral regurgitation. Tricuspid valve and pulmonic valve are without evidence of structural abnormality. There is trace tricuspid regurgitation. Aortic root is normal in size. 3. Normal left ventricular chamber size with mild concentric left ventricular hypertrophy is demonstrated. Estimated left ventricular ejection fraction appears to be at least 65%. No regional wall motion abnormalities are evident. Left atrium, right atrium, right ventricle are normal in size with grossly preserved right ventricular systolic function. 4. No pericardial effusion. 5. Appearance of inferior vena cava suggests normal central venous pressure. cc: MD David Reaves MD
[2019-01-19] MEDS: APRESOLINE PO SCH ×3 (05:58→20:08)
[2019-01-19] MEDS: HUMULIN R (PARKWAY) SUBQ SCH ×4 (06:22→22:10)
[2019-01-19] MEDS: ZOFRAN IV PRN ×2 (07:28→12:59)
[2019-01-19] MEDS: MAXIPIME 1 GM in NS 50 ML IV SCH ×2 (07:58→20:07)
[2019-01-19 09:54] LABS: BASO# 0.01 X1000 (0.0-0.2); BASO% 0.2 % (0.0-0.8); HEMATOCRIT 35.6 % (42.0-52.0); HEMOGLOBIN 12.5 g/dL (14.0-18.0); IMM GRAN# 0.02 X1000 (0.0-0.04); IMM GRAN% 0.4 % (0.0-0.5); LYMPH# 0.53 X1000 (1.2-3.4); LYMPH% 11.7 % (20.5-51.1); MCH 31.1 PG (27-31); MCHC 35.1 g/dL (33-37); MCV 88.6 FL (81-99); MONO# 0.54 X1000 (0.11-0.59); MONO% 11.9 % (1.7-9.3); MPV 10.9 FL (7.4-10.4); NEUT# 3.43 X1000 (1.4-6.5); NEUT% 75.8 % (42.2-75.2); PLT 163 X1000 (130-400); RBC 4.02 XMIL (4.7-6.1); RDW 12.5 % (11.5-14.5); WBC 4.53 X1000 (4.8-10.8)
[2019-01-19] MEDS: GLUCOPHAGE PO SCH ×2 (10:09→16:48)
[2019-01-19] MEDS: ICAR-C PLUS PO SCH (10:11)
[2019-01-19] MEDS: ZYVOX 600 MG/D5W 600 MG/300 ML IVPB IV SCH ×2 (10:11→20:07)
[2019-01-19] MEDS: PRINIVIL PO SCH ×2 (10:11→20:08)
[2019-01-19] MEDS: THERA M PLUS PO SCH (10:11)
[2019-01-19] MEDS: MAG-OX PO SCH (10:11)
[2019-01-19] MEDS: PLAVIX PO SCH (10:11)
[2019-01-19] MEDS: ASPIRIN PO SCH (10:11)
[2019-01-19] MEDS ORDERED: PROTONIX PO ONE (10:12)
[2019-01-19] MEDS: VITAMIN B-12 PO SCH (10:12)
[2019-01-19 10:14] LABS: CALCIUM 8.5 mg/dL (8.8-10.2); CREATININE 1.6 mg/dL (0.7-1.2); POTASSIUM 4.1 mmol/L (3.5-5.1)
--- NOTE | 2019-01-19 13:05 | PROGRESS NOTE ---
DATE: 01/19/2019 SUBJECTIVE: Patient from the last 24 hours has not had any more episodes of fever. Denies diarrhea, no coughing. Overall he is feeling better. OBJECTIVE: Vital Signs: Temperature 98.6 degrees, heart rate 109, respiratory rate 18, blood pressure 142/80, O2 saturation 95% on room air. General: This is a 69-year-old male, lying in bed, in no acute distress. Cardiovascular: S1, S2 heard. No murmurs, gallops, or rubs. Regular rate and rhythm. Respiratory Exam: Clear bilaterally to auscultation. No work of breathing or using accessory muscles. Abdomen: Soft, nontender to palpation. Bowel sounds present. No organomegaly. Extremities: No clubbing, cyanosis, or edema. Peripheral pulses present in both legs. Neurological: Patient is alert and oriented x3. Moves 4 extremities. LABORATORY DATA: White cell count 4.53, hemoglobin 12.5, hematocrit 35.6, platelets 163,000. BMP shows sodium 131 with creatinine 1.6, glucose 262. ASSESSMENT AND PLAN: 1. Left lingular pneumonia. That is the reason why this patient was having fever. Since we started this patient on Zyvox and cefepime, patient is not having any more fever. Today is day #2 for both medications. White cell count is normal. We will continue with the same management. 2. Bradyarrhythmia. At admission, the patient had 2 to 3 long pauses in the telemetry. That has been evaluated by Dr. Wolfe from Cardiology who attributed that to beta blockers so those medications were stopped. At this time, the patient's heart rhythm is a little bit elevated but maximal heart rate was 112. At this point, we will continue with the same management. 3. Chronic kidney disease stage 3. Creatinine at baseline. We will continue to monitor. 4. Diabetes mellitus type 2. Hemoglobin A1c is 9.7. We will continue with sliding scale insulin and Accu-Cheks before meals and also at bedtime. 5. Hyperlipidemia with hypertriglyceridemia. We will continue with pravastatin and fenofibrate. 6. Disposition. I think this patient is doing good. I am planning to keep him over the weekend and I think on Monday if white cell count continues to be normal and patient is afebrile, I think we can send this patient home. cc: David Garcia MD MTDD
[2019-01-19] MEDS: TRICOR PO SCH (20:07)
[2019-01-19] MEDS: PRAVACHOL PO SCH (20:08)
[2019-01-20] MEDS: APRESOLINE PO SCH ×3 (05:49→21:29)
[2019-01-20] MEDS: PROTONIX PO SCH ×2 (05:49→06:04)
[2019-01-20] MEDS: HUMULIN R (PARKWAY) SUBQ SCH ×5 (06:03→21:30)
[2019-01-20 07:17] LABS: BASO# 0.01 X1000 (0.0-0.2); BASO% 0.2 % (0.0-0.8); EOS# 0.01 X1000 (0.0-0.7); EOS% 0.2 % (0.0-10.0); HEMATOCRIT 34.7 % (42.0-52.0); HEMOGLOBIN 11.8 g/dL (14.0-18.0); IMM GRAN# 0.01 X1000 (0.0-0.04); IMM GRAN% 0.2 % (0.0-0.5); LYMPH% 26.7 % (20.5-51.1); MCH 30.3 PG (27-31); MONO# 0.87 X1000 (0.11-0.59); MONO% 19.3 % (1.7-9.3); MPV 11.6 FL (7.4-10.4); NEUT% 53.4 % (42.2-75.2); PLT 186 X1000 (130-400); RDW 12.4 % (11.5-14.5)
[2019-01-20 07:36] LABS: CALCIUM 8.6 mg/dL (8.8-10.2); CREATININE 1.6 mg/dL (0.7-1.2); POTASSIUM 3.9 mmol/L (3.5-5.1)
[2019-01-20] MEDS: MAXIPIME 1 GM in NS 50 ML IV SCH ×2 (08:28→21:30)
[2019-01-20] MEDS ORDERED: LANTUS INSULIN SUBQ SCH (09:00)
[2019-01-20] MEDS: ZYVOX 600 MG/D5W 600 MG/300 ML IVPB IV SCH (09:29)
[2019-01-20] MEDS: ZOFRAN IV PRN ×2 (11:29→21:32)
--- NOTE | 2019-01-20 11:30 | PROGRESS NOTE ---
DATE: 01/20/2019 SUBJECTIVE: Patient is lying comfortably in bed. He is completely alert and oriented x3. He has been complaining of nausea for the past couple of days. His blood sugar has been running high, so I have placed this patient back on his Amaryl 2 mg p.o. twice a day. Also I have restarted this patient's Trulicity which should be given tomorrow. OBJECTIVE: Vital Signs: Temperature 97.6 degrees, pulse 104, respiratory rate 18, blood pressure 144/83, oxygen saturation 96% on room air. HEENT: Head normocephalic, no trauma. PERRLA. Neck: Supple. No JVD. No masses. Central trachea. Chest: Crepitus at the right base with some rhonchi as well. Otherwise, clear. Abdomen: Soft, nontender, nondistended. No hepatosplenomegaly. Extremities: No edema, no clubbing, no cyanosis. Neurological: The patient is completely alert and oriented x3. No focal neurological deficits. LABORATORY: WBC 4.5, hemoglobin 11.8, hematocrit 34.7, platelets 186,000. Sodium 132, potassium 3.9, chloride 95, bicarbonate 23, BUN 16, creatinine 1.6, glucose 282, calcium 8.6. ASSESSMENT AND PLAN: 1. Left lingular pneumonia. Continue with the same management for now, today is day #3 of his antibiotics. White count is normal. Continue with same management. 2. Bradyarrhythmia. Upon admission the patient had 2 to 3 long pauses in telemetry. He has been evaluated by Dr. Wolfe from Cardiology Department and beta blockers have been stopped for that reason. His heart rate has been borderline low in the 100s and sometimes 110, but we will continue with the same management and probably we will discuss in the future with Dr. Wolfe if we need to use any other medication for that. 3. Chronic kidney disease stage 3, this is his baseline. Continue to monitor. 4. Type 2 diabetes, uncontrolled. His hemoglobin A1c is 9.7. We will continue with sliding scale insulin and pattern of blood sugar and I have placed this patient back on his Trulicity and Amaryl. 5. Hyperlipidemia with hypertriglyceridemia. Continue with pravastatin and fenofibrate. Overall, this patient is feeling a little bit better, but he is complaining of nausea today. I had an extensive conversation with this patient and his who is at the bedside about diabetes and diabetes-related problems, we talked about retinopathy, kidney dysfunction, peripheral neuropathy and gastroparesis. He seems to understand. I recommended to follow up with an non [employer] intercept technician since he has been on multiple medications and it looks like it is not controlling his blood sugar. On the other hand, I have stopped the metformin due to his kidney dysfunction for now. cc: Elbert Fontanez MD
[2019-01-20] MEDS: NS 1,000 ML IV SCH (12:21)
[2019-01-20] MEDS: MAG-OX PO SCH (13:44)
[2019-01-20] MEDS: ICAR-C PLUS PO SCH (13:44)
[2019-01-20] MEDS: ASPIRIN PO SCH (13:44)
[2019-01-20] MEDS: AMARYL PO SCH ×2 (13:44→21:29)
[2019-01-20] MEDS: VITAMIN B-12 PO SCH (13:45)
[2019-01-20] MEDS: THERA M PLUS PO SCH (13:45)
[2019-01-20] MEDS: PLAVIX PO SCH (14:54)
[2019-01-20] MEDS: PRINIVIL PO SCH ×2 (14:54→21:29)
[2019-01-20] MEDS: TRICOR PO SCH (21:29)
[2019-01-20] MEDS: PRAVACHOL PO SCH (21:29)
[2019-01-21] MEDS: ZYVOX 600 MG/D5W 600 MG/300 ML IVPB IV SCH (00:19)
[2019-01-21] MEDS: APRESOLINE PO SCH ×3 (06:22→20:06)
[2019-01-21] MEDS: NS 1,000 ML IV SCH (06:23)
[2019-01-21] MEDS: HUMULIN R (PARKWAY) SUBQ SCH ×4 (06:23→23:17)
[2019-01-21] MEDS: PROTONIX PO SCH (06:23)
[2019-01-21 07:37] LABS: BASO# 0.01 X1000 (0.0-0.2); BASO% 0.2 % (0.0-0.8); EOS# 0.02 X1000 (0.0-0.7); EOS% 0.3 % (0.0-10.0); HEMATOCRIT 36.2 % (42.0-52.0); HEMOGLOBIN 12.6 g/dL (14.0-18.0); IMM GRAN# 0.01 X1000 (0.0-0.04); IMM GRAN% 0.2 % (0.0-0.5); LYMPH# 1.65 X1000 (1.2-3.4); LYMPH% 26.4 % (20.5-51.1); MCHC 34.8 g/dL (33-37); MCV 89.2 FL (81-99); MONO% 12.8 % (1.7-9.3); MPV 11.4 FL (7.4-10.4); NEUT# 3.77 X1000 (1.4-6.5); NEUT% 60.1 % (42.2-75.2); PLT 225 X1000 (130-400); RBC 4.06 XMIL (4.7-6.1); RDW 12.4 % (11.5-14.5); WBC 6.26 X1000 (4.8-10.8)
[2019-01-21 07:51] LABS: CALCIUM 8.7 mg/dL (8.8-10.2); CREATININE 1.5 mg/dL (0.7-1.2)
[2019-01-21] MEDS: ZOFRAN IV PRN (08:24)
[2019-01-21] MEDS: MAXIPIME 1 GM in NS 50 ML IV SCH ×2 (08:24→20:06)
[2019-01-21] MEDS ORDERED: PATIENT'S OWN MED SUBQ SCH (09:00)
[2019-01-21] MEDS: THERA M PLUS PO SCH (09:15)
[2019-01-21] MEDS: TYLENOL PO PRN (09:15)
[2019-01-21] MEDS: ICAR-C PLUS PO SCH (09:15)
[2019-01-21] MEDS: MAG-OX PO SCH (09:15)
[2019-01-21] MEDS: PRINIVIL PO SCH ×2 (09:15→20:07)
[2019-01-21] MEDS: AMARYL PO SCH ×2 (09:15→20:06)
[2019-01-21] MEDS: ASPIRIN PO SCH (09:15)
[2019-01-21] MEDS: PLAVIX PO SCH (09:15)
[2019-01-21] MEDS: VITAMIN B-12 PO SCH (09:15)
[2019-01-21] MEDS: DOXYCYCLINE PO SCH ×2 (09:16→20:06)
[2019-01-21] MEDS: ACTOS PO SCH (09:16)
--- NOTE | 2019-01-21 09:20 | Diag Imaging Result Doc PS360 ---
EXAM: CHEST-2 VIEWS HISTORY: pneumonia TECHNIQUE: PA and Lateral chest x-ray COMPARISON: 01/17/2019 and earlier. FINDINGS: The cardiomediastinal silhouette is within normal limits. The pulmonary vasculature is not congested. Calcified granuloma right lung. Nodular area of consolidation is noted left lower lung zone. Recommend follow-up to document complete clearing. No effusion. No pneumothorax. IMPRESSION: Nodular area of consolidation or atelectasis left mid and lower lung zone new from prior study. Recommend short interval follow-up to document complete clearing. Electronically signed by Katherine Lovelace 01/21/2019 9:18 AM
--- NOTE | 2019-01-21 14:23 | PROGRESS NOTE ---
DATE: 01/21/2019 SUBJECTIVE: Patient notes he is still having nausea. Vomiting appears to be better. Still having a headache. Denies any fevers. Denies cough or congestion currently. PHYSICAL EXAMINATION: Temperature 98.3, pulse 96, respiratory rate 18, BP 148/85. General: Patient is awake, alert, currently in no respiratory distress. HEENT: Normocephalic. Neck: Supple. Cardiovascular: Regular rate. No murmurs. Chest: Clear and nonlabored. Abdomen: Soft. Extremities: Moves all extremities. ASSESSMENT: 1. Left lingular pneumonia. 2. Bradyarrhythmia, stable. 3. Chronic kidney disease stage 3. 4. Type 2 diabetes with poor home control and A1c at 9.7. 5. Hyperlipidemia with hypertriglyceridemia. PLAN: Currently, the patient is on cefepime and Zyvox. We will change Zyvox to doxycycline. If he tolerates, we will change the cefepime tomorrow and discharge home. We will ask nutritional support to discuss with Mr. Boland a diabetic diet. We will add Actos 15 mg daily. Discussed with him that if his diet and blood sugar do not improve, he will need to go on insulin in addition. cc: Rob Perkins MD
[2019-01-21] MEDS: TRICOR PO SCH (20:06)
[2019-01-21] MEDS: PRAVACHOL PO SCH (20:06)
[2019-01-22] MEDS: APRESOLINE PO SCH ×3 (05:42→20:23)
[2019-01-22] MEDS: NS 1,000 ML IV SCH ×4 (05:42→20:24)
[2019-01-22 05:45] LABS: AGAP 11; BUN 17 mg/dL (8-22); CALCIUM 8.4 mg/dL (8.8-10.2); CHLORIDE 102 mmol/L (98-107); COSMO 279; CREATININE 1.4 mg/dL (0.7-1.2); GLUCOSE 158 mg/dL (70-104); POTASSIUM 3.7 mmol/L (3.5-5.1); SODIUM 137 mmol/L (136-145); TCO2 24 mmol/L (25-35)
[2019-01-22] MEDS: PROTONIX PO SCH (06:04)
[2019-01-22] MEDS: HUMULIN R (PARKWAY) SUBQ SCH ×3 (06:38→15:47)
[2019-01-22 07:03] LABS: BASO# 0.02 X1000 (0.0-0.2); BASO% 0.3 % (0.0-0.8); EOS# 0.36 X1000 (0.0-0.7); EOS% 5.1 % (0.0-10.0); HEMATOCRIT 34.9 % (42.0-52.0); HEMOGLOBIN 11.7 g/dL (14.0-18.0); IMM GRAN# 0.03 X1000 (0.0-0.04); IMM GRAN% 0.4 % (0.0-0.5); LYMPH# 2.26 X1000 (1.2-3.4); LYMPH% 31.8 % (20.5-51.1); MCH 29.9 PG (27-31); MCHC 33.5 g/dL (33-37); MCV 89.3 FL (81-99); MONO% 14.1 % (1.7-9.3); MPV 11.3 FL (7.4-10.4); NEUT# 3.43 X1000 (1.4-6.5); NEUT% 48.3 % (42.2-75.2); PLT 233 X1000 (130-400); RBC 3.91 XMIL (4.7-6.1); RDW 12.5 % (11.5-14.5)
[2019-01-22 07:15] LABS: EOS 7 % (1-10); LYMPHS 30 % (21-51); MONO 12 % (1-9); SEGS 50 % (42-75)
[2019-01-22] MEDS ORDERED: OMNICEF PO SCH (09:00)
[2019-01-22] MEDS: DOXYCYCLINE PO SCH ×2 (09:24→20:23)
[2019-01-22] MEDS: VITAMIN B-12 PO SCH (09:24)
[2019-01-22] MEDS: ASPIRIN PO SCH (09:24)
[2019-01-22] MEDS: ACTOS PO SCH (09:24)
[2019-01-22] MEDS: THERA M PLUS PO SCH (09:24)
[2019-01-22] MEDS: PLAVIX PO SCH (09:24)
[2019-01-22] MEDS: MAG-OX PO SCH (09:24)
[2019-01-22] MEDS: AMARYL PO SCH ×2 (09:24→20:24)
[2019-01-22] MEDS: ICAR-C PLUS PO SCH (09:24)
[2019-01-22] MEDS: PRINIVIL PO SCH ×2 (09:24→20:23)
[2019-01-22] MEDS: TYLENOL PO PRN (10:41)
[2019-01-22] MEDS: ZOFRAN IV PRN (11:16)
[2019-01-22] MEDS ORDERED: TYLENOL PO PRN (17:11)
[2019-01-22] MEDS ORDERED: ZOFRAN IV PRN (17:12)
[2019-01-22] MEDS: TRICOR PO SCH (20:23)
[2019-01-22] MEDS: PRAVACHOL PO SCH (20:23)
[2019-01-22] MEDS: OMNICEF PO SCH (20:24)
[2019-01-22] MEDS: APRESOLINE IV PRN (20:27)
--- NOTE | 2019-01-22 22:28 | PROGRESS NOTE ---
DATE: 01/22/2019 SUBJECTIVE: The patient notes that his shortness of breath and coughing have improved. However, his nausea has continued to worsen. He started having nausea yesterday and has been unable to keep anything down last night. This morning, he started having worse nausea, and each time he attempts to drink, he has been having emesis following that. Denies any abdominal pain. Denies any hematemesis, hematochezia. Denies diarrhea. OBJECTIVE: Vital signs: He is afebrile. Pulse in the 90s, respiratory 20, BP stable. General: The patient is very pleasant to talk with. He is somewhat ill appearing due to his nausea. He notes that his shortness of breath and coughing are improved. HEENT: Normocephalic. Neck: Supple. Cardiovascular: Regular rate. Chest: Relatively clear. No crackles. No wheezing. Abdomen: Soft, nondistended. Diffusely but very mildly tender in the epigastric region. Extremities: Moves all extremities. Neurologic: No focal changes. ASSESSMENT: 1. Left lingular pneumonia. 2. Bradyarrhythmia. Currently, the patient's heart rates are elevating into the 90s and low 110s. He has been off his beta-huong due to long pauses that he had had upon initial admission. 3. Diabetes. He is back on his metformin. A1c was 9.7 at home. This will need to continued to follow up although blood sugars have been much better in the hospital. 4. Acute on chronic renal failure, improving. 5. Hypercalcemia, resolved. 6. Nausea and vomiting of undetermined origin. PLAN: At this point, we will transfer to [facility] and have GI assist in care as the patient's nausea has been persistent. We will continue antibiotics for his pneumonia and continue to follow. cc: Rob Perkins MD
[2019-01-22] MEDS: HUMULIN R SUBQ SCH (22:31)
[2019-01-23] MEDS: APRESOLINE PO SCH ×3 (04:25→22:11)
[2019-01-23] MEDS: NS 1,000 ML IV SCH ×2 (06:16→18:49)
[2019-01-23] MEDS: HUMULIN R SUBQ SCH ×4 (06:51→22:10)
[2019-01-23] MEDS ORDERED: PROTONIX PO SCH (07:00)
--- NOTE | 2019-01-23 08:50 | EKG Report ---
Test Performed on : 01/23/2019 08:44:25 AM Test Reason : tachycardia Blood Pressure : / mmHG Vent. Rate : 110 BPM Atrial Rate : 110 BPM P-R Int : 186 ms QRS Dur : 088 ms QT Int : 342 ms P-R-T Axes : 044 039 042 degrees QTc Int : 462 ms Sinus tachycardia. Otherwise normal ECG When compared with ECG of 16-JAN-2019 22:36, (Unconfirmed) No significant change was found Confirmed by Hernán SARAH, Fabrizio Lynn ([id number]) on 01/23/2019 10:24:17 AM
[2019-01-23] MEDS ORDERED: ACTOS PO SCH (09:00)
[2019-01-23] MEDS: ICAR-C PLUS PO SCH (09:54)
[2019-01-23] MEDS: PRINIVIL PO SCH ×2 (09:55→22:12)
[2019-01-23] MEDS: AMARYL PO SCH ×2 (09:55→22:11)
[2019-01-23] MEDS: PLAVIX PO SCH (09:55)
[2019-01-23] MEDS: MAG-OX PO SCH (09:55)
[2019-01-23] MEDS: ASPIRIN PO SCH (09:56)
[2019-01-23] MEDS: OMNICEF PO SCH ×2 (09:56→22:09)
[2019-01-23] MEDS: THERA M PLUS PO SCH (09:56)
[2019-01-23] MEDS: VITAMIN B-12 PO SCH (09:56)
[2019-01-23] MEDS: DOXYCYCLINE PO SCH ×2 (09:57→22:11)
--- NOTE | 2019-01-23 15:15 | Diag Imaging Result Doc PS360 ---
EXAM: ABDOMEN FLAT/UPRIGHT 01/23/2019 HISTORY: constipation TECHNIQUE: Flat and upright abdomen COMMENT: There is colonic and small bowel gas without evidence of dilatation. The stomach is not distended. There is no evidence organomegaly or mass and no abnormal calcifications are present in the abdomen or pelvis. IMPRESSION: Nonspecific abdomen. Electronically signed by Surjit Galdamez 01/23/2019 3:12 PM
[2019-01-23] MEDS: APRESOLINE IV PRN (17:37)
--- NOTE | 2019-01-23 19:30 | PROGRESS NOTE ---
DATE: 01/23/2019 SUBJECTIVE: The patient is resting comfortably in bed. He states that he is still having periods of nausea. He has not had a bowel movement in several days. OBJECTIVE: Vital Signs: Temperature 98.9 degrees, blood pressure 189/109, heart rate 109, respirations 16, O2 saturation 98% on room air. General: This is an elderly male lying in bed in no acute distress. Heart: S1, S2 normal. Tachycardic. Lungs: Equal air entry bilaterally. No wheezing. No rales. Abdomen: Positive bowel sounds. Soft, nontender, nondistended. Extremities: No edema, no cyanosis. Neurologic: The patient is alert and oriented x4. LABORATORY DATA: None. IMAGING: Abdominal x-ray shows a nonspecific abdomen. ASSESSMENT AND PLAN: 1. Pneumonia. We will continue with antibiotic therapy. We will order a two-view chest x-ray to be done tomorrow. 2. Pulmonary nodule. We will consult with pulmonology for further recommendations. 3. Nausea with vomiting. GI has been consulted. We will await further recommendations. 4. Constipation. We will start the patient on scheduled laxative therapy. 5. Acute kidney injury on chronic kidney disease. Improved. We will continue to avoid nephrotoxic agents. The patient is currently on normal saline. 6. Uncontrolled hypertension. Continue on lisinopril and hydralazine. We will also add Norvasc. 7. Diabetes mellitus type 2. We will continue with sliding scale insulin. 8. Deep vein thrombosis prophylaxis. We will start the patient on Lovenox. cc: Breonna Denney MD
--- NOTE | 2019-01-23 19:49 | GASTROENTEROLOGY CONSULTATION ---
DATE: 01/23/2019 REASON FOR CONSULTATION: nausea and vomiting HPI: Mr. Uzair Boland is a 69 year old man with HTN, HLD, CVAx2 with residual RLE numbness on aspirin and plavix, NIDDM2, CKD3, chronic MUNA who was admitted with diarrhea, HTN, and hyperglycemia found to have fever treated with antibiotics for pneumonia who developed NBNB emesis during hospitalization. He has been having 1-4 episodes per day since hospitalization. He denies having any NV prior to admission. No CP, SOB, abdominal pain, rectal bleeding, melena, change in bowel habits, GERD. He reports having EGD/colonoscopy with Dr. Schroeder that were unrevealing. He rarely takes NSAIDs. He reports having some improvement of his nausea and vomiting since stopping Zyvox and cefepime yesterday. He is currently on doxycycline. He was able to eat lunch and breakfast this morning without nausea or vomiting. REVIEW OF SYSTEMS: A 12-point review of systems are complete and all are negative except for those mentioned above in HPI. PAST MEDICAL HISTORY: 1. CVA x 2 with last one being in 2012. At that time he had some right-sided weakness, but that has resolved and now only has numbness. He is on Plavix. 2. Diabetes mellitus Type 2 uncontrolled. 3. Hypertension. 4. CKD Stage 3. 5. Hyperlipidemia. 6. Hypertriglyceridemia. 7. Skin disorder, eczema and mites causing dermatitis. SURGICAL HISTORY: 1. Bilateral cataracts. 2. EGD and colonoscopy in 2012. 3. Moles removed. SOCIAL HISTORY: Denies tobacco, alcohol or illicit drug use. 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 He lives at home with his . FAMILY HISTORY: Mother's side of the family stroke and diabetes. Father myocardial infarction in his 60s with CABG and also had AAA. One brother had cardiomyopathy and was going to be having LVAD placed, congestive heart failure and diabetes. He had another brother that had testicular cancer and congestive heart failure. ALLERGIES: Celebrex and Sulfa HOME MEDICATIONS: 1. Pravastatin 20 mg p.o. nightly. 2. Aspirin/calcium carbonate/magnesium combination 325 mg p.o. daily. 3. Plavix 75 mg p.o. daily. 4. Iron supplement once daily. 5. Doxycycline hyclate 50 mg p.o. daily. 6. Glimepiride 2 mg p.o. twice daily. 7. Iron, Vitamin B12, folic acid with Vitamin C once daily. 8. Lisinopril 20 mg p.o. twice daily. 9. Magnesium oxide 400 mg p.o. daily. 10.Metformin 1000 mg p.o. twice daily. 11.Metoprolol 25 mg p.o. twice daily. 12.Trulicity 1.5 mg subcu q Monday. 13.Vitamin B12 1000 mcg p.o. daily. PHYSICAL EXAMINATION: VITAL SIGNS: on admission: 101.8; heart rate 117; respiratory rate 18; blood pressure 185/106; O2 saturation 100% on room air. GENERAL: awake, alert, NAD HEENT: MMM, EOMI, anicteric sclera NECK: Trachea midline. CARDIOVASCULAR: RRR, no mumurs PULMONARY: Clear to auscultate bilateral breath sounds. No wheezing GASTROINTESTINAL: Soft, nontender, nondistended, positive bowel sounds x4. EXTREMITIES: Moves all extremities equally with full range of motion. NEUROLOGIC: A and O x3, follows commands. Sensory is intact except for right lower extremity chronic numbness. SKIN: Warm, dry, intact. LABORATORY DATA: White blood cells 4000, hemoglobin 13, hematocrit 39, platelets 194,000. INR 0.94, PTT 24.6, sodium 139, potassium 4.3, BUN 19, creatinine 1.7, glucose 193, calcium 8.9, A1C 9.7, bilirubin 0.2, AST 20, ALT 18, CK 119, troponin less than 0.01, albumin 4.0, triglycerides 293, total cholesterol 155, lactate 1.6, PSA 0.18, TSH 1.73, free T4 1.23. Urinalysis 1+ protein, 1+ blood, 10-20 red blood cells, 2+ glucose. Negative flu. IMAGING: Chest x-ray poor inspiratory effort with basilar atelectasis. Repeat chest x-ray no pneumonia. Head CT progression and cerebral white matter hypodensities compatible with chronic microvascular disease. EKG sinus tachycardia, incomplete right bundle branch block, rate 122, QTc 427. ASSESSMENT AND PLAN: Mr. Uzair Boland is a 69 year old man with HTN, HLD, CVAx2 with residual RLE numbness on aspirin and plavix, NIDDM2, CKD3, chronic MUNA who was admitted with diarrhea, HTN, and hyperglycemia found to have fever treated with antibiotics for pneumonia who developed NBNB emesis during hospitalization. His symptoms have improved since stopping IV antibiotics. I suspect his N/V was secondary to this. Other etiologies include GERD, esophagitis, PUD, gastroparesis #N/V: improving: continue antiemetics prn; diabetic diet; control glucoses, NPO after MN for diagnostic EGD tomorrow; continue PPI once daily #CKD: stable #History of CVA: stable #HTN/HLD: continue home meds MTDD
[2019-01-23] MEDS: MIRALAX PO SCH (22:09)
[2019-01-23] MEDS: LOVENOX SUBQ SCH (22:09)
[2019-01-23] MEDS: TRICOR PO SCH (22:10)
[2019-01-23] MEDS: NORVASC PO SCH (22:11)
[2019-01-23] MEDS: COLACE PO SCH (22:11)
[2019-01-23] MEDS: PRAVACHOL PO SCH (22:11)
--- NOTE | 2019-01-24 01:54 | PULMONOLOGY CONSULTATION ---
DATE: 01/23/2019 REQUESTING PHYSICIAN: Breonna Denney MD. REASON FOR CONSULTATION: Pulmonary nodule. 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 Temperature was as high as 101.8 degrees in the emergency room. Initial chest x-ray revealed mild atelectasis. The patient had a prior stroke. CT scan of the brain was performed which revealed chronic microvascular disease with no evidence of acute disease. He was admitted to the hospital and initiated on antibiotics. His fever subsequently resolved. He underwent a CT scan of the chest, abdomen and pelvis and a nodular area was seen in the lingula. A subsequent chest x-ray also revealed this new nodule that was not seen on his initial x-ray. The patient's fever has resolved. He has done well except for he has had nausea and diarrhea during the hospitalization. He was transferred to [facility] for additional evaluation and treatment. His antibiotics have been discontinued except for doxycycline, and his abdominal symptoms have resolved. He is scheduled for an EGD tomorrow. PAST MEDICAL HISTORY: 1. Diabetes mellitus with uncontrolled hemoglobin A1c at 9.7. 2. Hypertension. 3. Stage 3 kidney disease. 4. Dyslipidemia. 5. Two prior strokes. 6. Bilateral cataract disease. 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 No alcohol or tobacco use. FAMILY HISTORY: Positive for heart disease, vascular disease, strokes, diabetes, and testicular cancer. REVIEW OF SYSTEMS: Now negative. PHYSICAL EXAMINATION: General: Reveals a well-developed, well-nourished male resting comfortably and in no distress. Vital Signs: BP 171/99, heart rate 115, respiratory rate 21, oxygen saturation 98% on room air. HEENT: Pupils are equal and reactive. Oropharynx is clear. Neck: Supple. Chest: Reveals good air entry bilaterally without wheezing, rales or tactile fremitus. Cardiac Exam: Normal S1, S2. Abdomen: Soft and without hepatosplenomegaly. Extremities: Without edema. LABORATORY DATA: CT scan and chest x-rays as per above. MICROBIOLOGY: All cultures are negative. IMPRESSION: The patient is a 69-year-old with history of diabetes with elevated hemoglobin A1c, who presented to the hospital with fevers and weakness. He subsequently developed a nodular infiltrate in the lingula which could be seen on his CT scan, but is in a field of view that could also be seen on subsequent chest x-rays. With his history and presentation, this is most consistent with a community-acquired pneumonia that has a round presentation. He has completed a course of antibiotics. He had significant gastrointestinal issues, but these have resolved with tapering of his antibiotics. RECOMMENDATIONS: 1. Agree with follow up chest x-ray tomorrow. 2. I do not believe additional antibiotics will be needed given his near complete course of treatment. 3. Recommend follow up chest x-ray with his primary care physician in 10 days to 2 weeks. If the nodular area remains, then a follow up CT scan should be performed. cc: Peter Sam MD
[2019-01-24] MEDS: APRESOLINE PO SCH ×3 (05:29→20:52)
[2019-01-24] MEDS: NS 1,000 ML IV SCH ×3 (05:30→22:43)
[2019-01-24] MEDS: HUMULIN R SUBQ SCH ×4 (06:41→20:53)
[2019-01-24 07:02] LABS: HEMATOCRIT 36.1 % (42.0-52.0); HEMOGLOBIN 12.3 g/dL (14.0-18.0); MCH 30.8 PG (27-31); MCHC 34.1 g/dL (33-37); MCV 90.5 FL (81-99); MPV 10.4 FL (7.4-10.4); RBC 3.99 XMIL (4.7-6.1); RDW 12.5 % (11.5-14.5); WBC 7.08 X1000 (4.8-10.8)
[2019-01-24 07:08] LABS: CALCIUM 8.6 mg/dL (8.8-10.2); CREATININE 1.4 mg/dL (0.7-1.2); POTASSIUM 3.5 mmol/L (3.5-5.1)
[2019-01-24 07:13] LABS: ALB/GLOB RATIO 1.5; ALBUMIN 3.8 g/dL (3.5-5.0); ALKALINE PHOSPHATASE 54 U/L (32-122); DIRECT BILIRUBIN < 0.10 mg/dL (0.00-0.20); GOT 20 U/L (10-34); GPT 21 U/L (10-44); LIPASE 82 U/L (13-60); TOTAL PROTEIN 6.3 g/dL (6.3-8.3)
--- NOTE | 2019-01-24 08:14 | Diag Imaging Result Doc PS360 ---
EXAM: CHEST-2 VIEWS HISTORY: pneumonia TECHNIQUE: Chest two views COMPARISON: 01/21/2019 FINDINGS: The lungs are well expanded. The heart is not enlarged. The vessels are not distended. There are decreased markings in the lower left lung compared to the prior study. No consolidation. There is a granuloma in the lower right lung. No pleural effusions. IMPRESSION: Overall interval improvement Electronically signed by Bryce Gonzalez 01/24/2019 8:11 AM
[2019-01-24] MEDS ORDERED: XYLOCAINE-MPF 2% ONE (08:29)
[2019-01-24] MEDS ORDERED: DIPRIVAN 1% ONE (08:29)
[2019-01-24] MEDS ORDERED: LABETALOL (DOSE) ONE (11:11)
[2019-01-24] MEDS: OMNICEF PO SCH ×2 (11:54→20:51)
[2019-01-24] MEDS: THERA M PLUS PO SCH (11:54)
[2019-01-24] MEDS: COLACE PO SCH ×2 (11:54→20:52)
[2019-01-24] MEDS: MAG-OX PO SCH (11:54)
[2019-01-24] MEDS: VITAMIN B-12 PO SCH (11:55)
[2019-01-24] MEDS: PRINIVIL PO SCH ×2 (11:55→20:51)
[2019-01-24] MEDS: ICAR-C PLUS PO SCH (11:55)
[2019-01-24] MEDS: PLAVIX PO SCH (11:56)
[2019-01-24] MEDS: AMARYL PO SCH ×2 (11:56→20:52)
[2019-01-24] MEDS: DOXYCYCLINE PO SCH ×2 (11:56→20:52)
[2019-01-24] MEDS: NORVASC PO SCH ×2 (11:56→20:52)
[2019-01-24] MEDS: MIRALAX PO SCH ×2 (11:57→20:52)
[2019-01-24] MEDS: ASPIRIN PO SCH (11:57)
[2019-01-24] MEDS: CARAFATE PO SCH ×3 (12:07→20:52)
--- NOTE | 2019-01-24 14:10 | PROGRESS NOTE ---
DATE: 01/24/2019 SUBJECTIVE: The patient is resting comfortably in bed. He is awaiting endoscopy today. OBJECTIVE: Vital Signs: Temperature 98, blood pressure 168/92, heart rate 104, respirations 16. O2 sats 100% on room air. General: This is an elderly male lying in bed in no acute distress. Heart: S1, S2 normal. Tachycardic. Lungs: Clear to auscultation bilaterally. Abdomen: Positive bowel sounds. Soft, nontender, nondistended. Extremities: No edema, no cyanosis. Neurologic: The patient is alert and oriented x 4. LABS: Reviewed. ASSESSMENT AND PLAN: 1. Pneumonia. This appears to have resolved on the chest x-ray done today. 2. Pulmonary nodule. The patient will have a follow-up CT scan in 2 weeks. 3. Nausea with vomiting. Endoscopy is planned for today. 4. Chronic kidney disease. Stable. 5. Uncontrolled hypertension. Continue with current antihypertensive regimen. 6. Diabetes mellitus type 2. Continue on Amaryl. 7. DVT prophylaxis. Continue on Lovenox. cc: Breonna Denney MD
--- NOTE | 2019-01-24 14:53 | OPERATIVE NOTE ---
PROCEDURE DATE: 01/24/2019 REQUESTING PHYSICIAN: Dr. Denney. PRIMARY CARE DOCTOR: Dr. Deshawn Jasso. PROCEDURE: Esophagogastroduodenoscopy. PREOPERATIVE DIAGNOSES: 1. Nausea and vomiting. 2. Anemia. 3. CVA x2 with the last one on 09/23/2018. Has some right-sided weakness. Continues on Plavix and aspirin. 4. Type 2 diabetes. 5. Hypertension. 6. Chronic kidney disease. 7. Last colonoscopy about [address] Schroeder. POSTOPERATIVE DIAGNOSES: 1. Esophagitis at the gastroesophageal junction. 2. Z-line was at 44 cm. It was irregular. There was evidence of erosive gastritis in the body and antrum. No biopsies were taken as the patient is on Aspirin and Plavix. 3. Normal fundus, cardia, incisura. 4. Duodenitis in the duodenal bulb. 5. Normal second portion. 6. No retained food in the stomach. 7. No evidence of Pyloric stenosis. ESTIMATED BLOOD LOSS: None. COMPLICATIONS: None. ANESTHESIA: Monitored anesthesia care per the anesthesiologist. SPECIMENS: None. DESCRIPTION OF PROCEDURE: After informed consent, the patient was explained the risks, benefits, indications, and alternatives to the procedure, the patient was prepares for EGD. The patient was brought to the OR. He was turned to the left lateral position. A bite block was placed. After adequate monitored anesthesia care, the scope was introduced through the oral orifice, traversed all the way to the second, and the second portion of the duodenum. The esophagus were normal in the proximal and middle third of the esophagus, there was evidence of mild esophagitis at the distal esophagus and GE junction, LA grade 1. The Z-line was visualized at 44 cm. This was slightly irregular. The stomach showed evidence of erythema and superficial erosions in the body suggesting erosive gastritis. Retroflexion in the stomach revealed normal fundus, cardia, incisura. There was no evidence of any retained food or any evidence of pyloric stenosis. The duodenal bulb showed evidence of mild erythema, suggesting duodenitis. The second portion of the duodenum appeared normal. There was no evidence of any ulceration noted. The scope was withdrawn. The patient was continued to be monitored in the OR in stable condition. RECOMMENDATIONS: 1. The patient will continue iron supplementation, iron C b.i.d. for 3 months. 2. The patient will increase the Protonix to 40 mg twice daily. The patient is on aspirin and Plavix at home for history of CVA. 3. We will schedule the patient to follow up in the clinic in 4 weeks after discharge. At that time, we will possibly schedule him for colonoscopy for anemia. He may need Helicobacter pylori breath test or a stool test to evaluate for gastritis. 4. Further recommendations pending hospital course. Discussed the above with the patients family and all questions were answered. Please call if with any further questions. cc: MD Jamie Cote MD MTDD
[2019-01-24] MEDS: PRAVACHOL PO SCH (20:51)
[2019-01-24] MEDS: TRICOR PO SCH (20:51)
[2019-01-24] MEDS: LOVENOX SUBQ SCH (20:51)
[2019-01-24] MEDS: PROTONIX PO SCH (20:52)
--- NOTE | 2019-01-24 23:41 | PULMONOLOGY PROGRESS NOTE ---
DATE: 01/24/2019 SUBJECTIVE: The patient is awake, alert, and conversant. He underwent his EGD earlier today. He is tolerating p.o. intake without difficulty. He denies cough or sputum production. OBJECTIVE: Vital Signs: The patient has been afebrile for the last 24 hours. Blood pressure 156/88, heart rate 93, respiratory rate 14, oxygen saturation 99%. HEENT: Pupils are equal and reactive. Oropharynx is clear. Neck: Supple. Chest: Reveals good air entry bilaterally without wheezing or rhonchi. Cardiac exam: S1, S2. Abdomen: Soft, without hepatosplenomegaly. Extremities: Without edema. IMAGING STUDIES: Chest x-ray reveals near-complete clearing of the nodular infiltrate at the left base. LABORATORIES: White blood count 7.08, hemoglobin 12.3, platelet count 317,000. Immunoglobulin levels reveal normal IgA level, normal IgG level, mild to moderate reduction in the IgM level. IMPRESSION: A 69-year-old with: 1. Community-acquired pneumonia. 2. Elevated hemoglobin A1c. 3. Esophagitis and gastritis by recent esophagogastroduodenoscopy. 4. Community-acquired pneumonia with a nodule/nodular infiltrate in the lingula. Chest x-ray appears to be improving. RECOMMENDATIONS: 1. Continue current antibiotic regimen. 2. Anticipate discharge tomorrow. He should have received an adequate amount of antibiotics. 3. Recommend follow up with Dr. Deshawn Jasso in 2 to 3 weeks. It would be reasonable to repeat a CT scan of the thorax at that time to ensure complete clearing of the nodular infiltrate. cc: Peter Sam MD
[2019-01-25] MEDS: CARAFATE PO SCH ×2 (02:53→05:59)
[2019-01-25] MEDS: APRESOLINE PO SCH (05:59)
[2019-01-25] MEDS: HUMULIN R SUBQ SCH (06:34)
[2019-01-25] MEDS: THERA M PLUS PO SCH (08:16)
[2019-01-25] MEDS: OMNICEF PO SCH (08:16)
[2019-01-25] MEDS: PLAVIX PO SCH (08:16)
[2019-01-25] MEDS: MAG-OX PO SCH (08:16)
[2019-01-25] MEDS: AMARYL PO SCH (08:16)
[2019-01-25] MEDS: PRINIVIL PO SCH (08:17)
[2019-01-25] MEDS: NORVASC PO SCH (08:17)
[2019-01-25] MEDS: COLACE PO SCH ×2 (08:17→08:27)
[2019-01-25] MEDS: ASPIRIN PO SCH (08:17)
[2019-01-25] MEDS: PROTONIX PO SCH (08:17)
[2019-01-25] MEDS: VITAMIN B-12 PO SCH (08:18)
[2019-01-25] MEDS: DOXYCYCLINE PO SCH (08:18)
[2019-01-25] MEDS: ICAR-C PLUS PO SCH (08:18)
[2019-01-25] MEDS: MIRALAX PO SCH ×2 (08:18→08:26)
[2019-01-25] MEDS ORDERED: ZEBETA PO SCH (09:45)
[2019-01-25 12:18] VITALS: BP 140/75
--- NOTE | 2019-01-25 21:50 | PROVIDER PROGRESS NOTE ---
Progress Note SUBJECTIVE: No acute overnight events. N/V resolved. Patient tolerating PO OBJECTIVE: Last Vital Signs Temp 98.5 F 01/25/19 12:00 Pulse 98 H 01/25/19 12:00 Resp 18 01/25/19 12:00 BP 140/75 01/25/19 12:00 Pulse Ox 98 01/25/19 12:00 Height 5 ft 5 in Weight 184 lb 11.2 oz GEN: awake, alert, NAD HEENT: anicteric, MMM NECK: supple, no jvd PULM: CTAB, no wheezing CV: RRR, no murmurs ABD: soft NT/ND, NABS EXT: no cce NEURO: nonfocal LABS 01/24/19 01/24/19 06:15 06:15 WBC 7.08 Hgb 12.3 L Plt Count 317 Sodium 139 Potassium 3.5 Chloride 101 Carbon Dioxide 24 L BUN 16 Creatinine 1.4 H Glucose 161 H EGD 01/24/2019 POSTOPERATIVE DIAGNOSES: 1. Esophagitis at the gastroesophageal junction. 2. Z-line was at 44 cm. It was irregular. There was evidence of erosive gastritis in the body and antrum. No biopsies were taken as the patient is on Aspirin and Plavix. 3. Normal fundus, cardia, incisura. 4. Duodenitis in the duodenal bulb. 5. Normal second portion. 6. No retained food in the stomach. 7. No evidence of Pyloric stenosis. A/P Mr. Uzair Boland is a 69 year old man with HTN, HLD, CVAx2 with residual RLE numbness on aspirin and plavix, NIDDM2, CKD3, chronic MUNA who was admitted with diarrhea, HTN, and hyperglycemia found to have fever treated with antibiotics for pneumonia who developed NBNB emesis during hospitalization. His symptoms have improved since stopping IV antibiotics. EGD showed some erosive gastritis and esophagitis #N/V: resolved; continue PPI PO BID for 8-12 weeks; stop carafate #Esophagitis: PPI as above #Gastritis: as above #CKD: stable #History of CVA: stable #HTN/HLD: continue home meds Follow-up with Dr Jones upon discharge in 4 weeks
[2019-01-28] MEDS ORDERED: NON-FORMULARY MED SUBQ SCH (09:00)
--- NOTE | 2019-02-16 20:11 | DISCHARGE SUMMARY ---
ADMISSION DATE: 01/18/2019 DISCHARGE DATE: 01/25/2019 FINAL DISCHARGE DIAGNOSES: 1. Pneumonia. 2. Pulmonary nodule. 3. Chronic kidney disease. 4. Hypertension. 5. Diabetes mellitus type 2. 6. Obesity. 7. History of cerebrovascular accident. CONSULTATIONS REQUESTED DURING THIS HOSPITAL STAY: 1. Cardiology consultation with Dr. Wolfe. 2. Pulmonary consultation with Dr. Sam. 3. GI consultation with Dr. Sherwood. PROCEDURES: EGD performed on 01/24/2019 that revealed esophagitis, duodenitis, and erosive gastritis. HOSPITAL COURSE: Mr. Boland is a 69-year-old male with a history of multiple medical problems, who initially presented to the ER with a chief complaint of dizziness as well as uncontrolled hypertension. The patient was admitted to the hospitalist service, and a chest x-ray was done that revealed basilar atelectasis. There was concern about pneumonia, so broad-spectrum antibiotics were initiated after cultures were obtained. A CT of the chest, abdomen, and pelvis was done that revealed a large pulmonary nodule in the lingula that may represent pneumonia or neoplasm. In light of this finding, pulmonary Medicine was consulted. It was recommended that the patient continue to be treated for the pneumonia and for the patient to undergo a CT scan 2 weeks after completion of the antibiotics to check for resolution of the finding on CT. Over the course of the hospitalization, the patient developed nausea and vomiting, so GI was consulted. The patient was taken for an EGD that revealed gastritis, duodenitis, and esophagitis. The patient was started on Protonix twice a day with instructions to follow up with the striper upon discharge from the hospital. The patient continued to improve clinically and was cleared for discharge home. DISCHARGE MEDICATIONS: 1. Aspirin 325 oral daily. 2. Zebeta 2.5 mg oral daily. 3. Plavix 75 mg p.o. daily. 4. Vitamin B12 1000 mcg oral daily. 5. Doxycycline 100 mg oral twice a day. 6. Trulicity 1.5 mg subcutaneous as directed. 7. Amaryl 2 mg oral twice a day. 8. Multivitamin 1 tab oral daily. 9. Lisinopril 20 mg oral twice a day. 10. Metformin 1000 mg oral twice a day. 11. Protonix 40 mg p.o. twice a day. 12. MiraLAX 17 g oral twice a day p.r.n. for constipation. 13. Pravastatin 20 mg oral at bedtime. DISCHARGE DIET: 1800 ADA diet. ACTIVITY: As tolerated. FOLLOWUP INSTRUCTIONS: 1. The patient will need to follow up with Dr. Sherwood as scheduled by his clinic. 2. The patient will also need to follow up with Dr. Sam as scheduled. 3. The patient will need to follow up with Dr. Jasso in 2 weeks for a repeat CAT scan to check for resolution of the findings on CT during the hospitalization. 4. The patient will need to follow up with Dr. Wolfe on 02/08/2019 at 10 a.m. cc: Breonna Denney MD
== END 2019-01-25 12:24 | disposition home or self-care (01) | DRG 194 ==
LOC: P.MEDSURG 21:25 → P.ED 21:25 → SUATTDRO 01-18 14:13 → 4N 01-22 16:48
PROVIDERS: ATTEND Internal Medicine
CPT/HCPCS: 36415; 70450; 71010; 71020; 71045; 71046; 71250; 74019; 74020; 74176; 80048; 80053; 80061; 80076; 81001; 82550; 82784; 82948; 83036; 83605; 83690; 83721; 83735; 84153; 84439; 84443; 84484; 85025; 85027; 85610; 85730; 87040; 87275; 87276; 87804; 93005; 93010; 93306; 93880; 94761; 97116; 97163; 97530; 99285; A9270; J0360; J0692; J0696; J1650; J1815; J2020; J2405; J7030; XXXXX